=== PATIENT | female | born 1950 | race Caucasian/White ===

== ENCOUNTER 2017-01-24 07:03 | Day surgery (SDC) | payer OTHER ==
[2017-01-24] MEDS ORDERED: PROPOFOL 500 MG/50 ML EMU IV ONE ×2 (09:14)
[2017-01-24] MEDS ORDERED: LIDOCAINE HCL 1% MPF SOL ONE (09:14)
[2017-01-24 10:20] VITALS: BP 154/99; PULSE 51; RESP 18; TEMP 96.7; O2SAT 97
== END 2017-01-24 10:15 | disposition home or self-care (01) | DRG 951 ==
LOC: SURG 07:03
PROVIDERS: ATTEND Surgery
DX: Z12.11 Encounter for screening for malignant neoplasm of colon (principal); E11.9 Type 2 diabetes mellitus without complications; K57.30 Diverticulosis of large intestine without perforation or abscess without bleeding
CPT/HCPCS: G0121; J2001; J2704

== ENCOUNTER 2018-06-24 13:06 | Inpatient (IN) | payer OTHER ==
[2018-06-24] MEDS ORDERED: SODIUM CHLORIDE 0.9% FLUSH 10 ML SOL IV PRN (13:14)
[2018-06-24] MEDS ORDERED: SODIUM CHLORIDE 0.9% 500 ML 500 ML IV ONE (13:15)
[2018-06-24] MEDS ORDERED: SODIUM CHLORIDE 0.9% 1000ML 1,000 ML IV SCH (14:30)
[2018-06-24 17:30] LABS: CALCIUM 9.3 mg/dl (8.5-10.1); CARBON DIOXIDE 25.4 mEq/L (21-32); CREATININE 1.4 mg/dl (0.60-1.00); POTASSIUM 4.3 mMol/L (3.5-5.1)
[2018-06-24] MEDS ORDERED: LOPERAMIDE HYDROCHLORIDE 2 MG CAP PO PRN (18:34)
[2018-06-24] MEDS: SODI PO SCH (20:19)
[2018-06-24] MEDS: [UNRECOGNIZED DRUG - OTHER] PO SCH (20:19)
[2018-06-24] MEDS: CALCIUM PO SCH (20:19)
[2018-06-24] MEDS: CHOLECALCIFEROL PO SCH (20:19)
[2018-06-24] MEDS ORDERED: GABAPENTIN 300 MG CAP PO SCH (21:00)
[2018-06-24] MEDS ORDERED: LOVASTATIN 20 MG TABLET PO SCH (21:00)
[2018-06-24 22:14] VITALS: RESP 18
[2018-06-25 07:45] LABS: ALBUMIN 2.6 gm/dl (3.4-5.0); BILIRUBIN,TOTAL 0.3 mg/dl (0.2-1.0); CARBON DIOXIDE 25.5 mEq/L (21-32); CREATININE 1.28 mg/dl (0.60-1.00); POTASSIUM 4.6 mMol/L (3.5-5.1); TOTAL PROTEIN 6.1 gm/dl (6.4-8.2)
[2018-06-25 07:53] LABS: BASOPHILS % (AUTO) 1 % (0-3); EOSINOPHILS % (AUTO) 3 % (0-9); HEMATOCRIT 43 % (35-47); HEMOGLOBIN 13.4 gm/dl (12.0-15.5); LYMPHOCYTES % (AUTO) 24.6 % (10-50); MEAN CORPUSCULAR HEMOGLOBIN 28.3 pg (27.0-32.0); MEAN CORPUSCULAR HGB CONC 31.4 gm/dl (32.0-36.0); MEAN CORPUSCULAR VOLUME 90 fL (81-99); MONOCYTES % (AUTO) 9.3 % (0-12); NEUTROPHILS % (AUTO) 62.4 % (37-80)
[2018-06-25 08:07] VITALS: BP 120/72; TEMP 96.7; O2SAT 98
[2018-06-25] MEDS ORDERED: LOSARTAN POTASSIUM 50 MG TAB PO SCH (09:00)
[2018-06-25] MEDS ORDERED: ASCORBIC ACID/COPPER/LUTEIN/ 1 CAP CAP PO SCH (09:00)
[2018-06-25] MEDS: CALCIUM PO SCH (10:00)
[2018-06-25] MEDS: CHOLECALCIFEROL PO SCH (10:00)
[2018-06-25] MEDS: SODI PO SCH (10:00)
[2018-06-25] MEDS: [UNRECOGNIZED DRUG - OTHER] PO SCH (10:00)
[2018-06-25 10:08] VITALS: PULSE 59
[2018-06-25] MEDS ORDERED: METOPROLOL SUCCINATE 50 MG ER TAB PO SCH (18:00)
[2018-06-25] MEDS ORDERED: ALLOPURINOL 100 MG TAB PO SCH (18:00)
[2018-06-25] MEDS ORDERED: ASPIRIN 81 MG CHEWABLE CTB PO SCH (18:34)
== END 2018-06-25 09:45 | disposition home or self-care (01) | DRG 641 ==
LOC: ACUTE CARE 13:06
PROVIDERS: ADMIT Family Medicine; ATTEND Family Medicine
DX: E87.1 Hypo-osmolality and hyponatremia (principal); A04.72 Enterocolitis due to Clostridium difficile, not specified as recurrent; E86.0 Dehydration; E11.22 Type 2 diabetes mellitus with diabetic chronic kidney disease; I12.9 Hypertensive chronic kidney disease with stage 1 through stage 4 chronic kidney disease, or unspecified chronic kidney disease; N18.3 Chronic kidney disease, stage 3 (moderate)
CPT/HCPCS: 36415; 80048; 80053; 82962; 85025; A9270-GY

== ENCOUNTER 2018-11-11 09:19 | Emergency (ER) | payer OTHER ==
[2018-11-11 10:25] LABS: LACTIC ACID 1.6 mMol/L (0.0-2.0)
[2018-11-11 10:39] LABS: ALBUMIN 2.4 gm/dl (3.4-5.0); ALKALINE PHOSPHATASE 99 IU/L (46-116); ALT 69 IU/L (14-63); AST 44 IU/L (15-37); BILIRUBIN,TOTAL 0.4 mg/dl (0.2-1.0); BLOOD UREA NITROGEN 31 mg/dl (7-18); CALCIUM 8.6 mg/dl (8.5-10.1); CREATININE 2.02 mg/dl (0.60-1.00); GLUCOSE 151 mg/dl (74-106); POTASSIUM 4.5 mMol/L (3.5-5.1); TOTAL PROTEIN 6.2 gm/dl (6.4-8.2); TROP I < 0.017 ng/ml (0.000-0.056)
[2018-11-11 10:46] LABS: CARBON DIOXIDE 24.7 mEq/L (21-32); CHLORIDE 102 mMol/L (98-107); SODIUM 133 mMol/L (136-145)
[2018-11-11 10:47] LABS: BASOPHILS % (AUTO) 1 % (0-3); EOSINOPHILS % (AUTO) 0 % (0-9); HEMATOCRIT 41 % (35-47); LYMPHOCYTES % (AUTO) 36.4 % (10-50); MEAN CORPUSCULAR HEMOGLOBIN 27.4 pg (27.0-32.0); MEAN CORPUSCULAR HGB CONC 31.3 gm/dl (32.0-36.0); MEAN CORPUSCULAR VOLUME 87 fL (81-99); MONOCYTES % (AUTO) 11.8 % (0-12); NEUTROPHILS % (AUTO) 50.7 % (37-80)
[2018-11-11] MEDS ORDERED: SODIUM CHLORIDE 0.9% 1000ML 1,000 ML IV ONE (11:15)
[2018-11-11 14:01] VITALS: RESP 20
[2018-11-11 14:05] VITALS: TEMP 97.6
[2018-11-11 14:09] LABS: APPEARANCE,URINE Slightly Cloudy; BILIRUBIN,URINE NEGATIVE (NEGATIVE); COLOR,URINE Yellow; GLUCOSE, URINE (UA) NEGATIVE (NEGATIVE); KETONES,URINE NEGATIVE (NEGATIVE); LEUKOCYTE ESTERASE ,URINE TRACE (NEGATIVE); NITRATE,URINE NEGATIVE (NEGATIVE); OCCULT BLOOD,URINE NEGATIVE (NEG-TRACE); UROBILINOGEN,URINE 0.2 (0.2-1.0 EU)
[2018-11-11 14:21] LABS: BACTERIA RARE (< 1+); CRYSTALS NEGATIVE (0-3 AVE/HPF); EPITHELIAL CELLS 0-2 (SQUAMOUS); RBC,URINE NEG (0-3AV/HPF); WBC,URINE NEG (0-5AV/HPF)
[2018-11-11 16:42] VITALS: BP 155/73; PULSE 73; O2SAT 95
== END 2018-11-11 16:28 | disposition home or self-care (01) | DRG 684 ==
LOC: ED 09:19
DX: N17.9 Acute kidney failure, unspecified (principal); E86.0 Dehydration; N18.3 Chronic kidney disease, stage 3 (moderate); M79.10 Myalgia, unspecified site; R05 Cough; I10 Essential (primary) hypertension; R53.83 Other fatigue; Z79.899 Other long term (current) drug therapy
CPT/HCPCS: 36415; 71046; 80053; 81001; 84443; 84484; 85025; 87040; 87088; 93005; 96365; 96366; 99284